=== PATIENT | male | born 1970 | race Caucasian/White ===

== ENCOUNTER 2017-01-09 14:15 | Emergency (ER) | payer OTHER | END 2017-01-09 17:09 | disposition home or self-care (01) | LOC: ER1 14:15 | DX: S62.620B Displaced fracture of middle phalanx of right index finger, initial encounter for open fracture (principal); I10 Essential (primary) hypertension; E78.5 Hyperlipidemia, unspecified; E03.9 Hypothyroidism, unspecified; Z88.2 Allergy status to sulfonamides; W23.0XXA Caught, crushed, jammed, or pinched between moving objects, initial encounter | CPT/HCPCS: 12001; 73130; 90471; 90714; 96372; 99283; J0696 ==